=== PATIENT | female | born 1985 | race Caucasian/White ===

== ENCOUNTER → 2018-11-27 | Outpatient (CLI) | payer BC, OTHER ==
--- NOTE | 2018-11-27 15:39 | RAD ---
Obstetrical ultrasound, 11/27/2018: HISTORY: Uterine size/date discrepancy There is a single intrauterine fetus in a cephalic orientation. The biparietal diameter measures 4.2 cm compatible with a gestational age of 18-19 weeks. The average gestational age based on all of the measurements is 19 weeks and 0 days yielding a sonographic EDC of 04/23/2019. Normal activity and heart motion were seen. There is a four-chamber heart with a heart rate of 158 bpm. Fluid is identified in the bladder and stomach. The visualized portions of the kidneys and spine are unremarkable. There is a three-vessel umbilical cord demonstrating a normal cord insertion site. A normal amount of amniotic fluid is present with the SIMEON calculated at 14.3. The placenta lies anteriorly with no evidence of a placenta previa. The cervical length was estimated at 6.9 cm, although likely accentuated by the distended urinary bladder. IMPRESSION: Single viable intrauterine fetus of 19 weeks gestational age as described above. Electronically signed by: Maynor Townsend MD (11/27/2018 3:36 PM) [facility]
== END | disposition home or self-care (01) ==
LOC: US 09:02
PROVIDERS: ATTEND Obstetrics & Gynecology
DX: O26.842 Uterine size-date discrepancy, second trimester (principal); Z3A.19 19 weeks gestation of pregnancy
CPT/HCPCS: 76805